=== PATIENT | female | born 1935 ===

== ENCOUNTER 2017-01-12 16:54 | Emergency (ER) | payer MEDICARE ==
[2017-01-12 16:57] VITALS: BMI 24.5
--- NOTE | 2017-01-12 17:26 | C.PDOC ---
History Of Present Illness <Steff Davies - Last Filed: 01/12/17 19:03> <Toña Pearson - Last Filed: 01/20/17 08:19> 81 y/o female presents to the ED with complaints of hypoglycemic episode [employer]. Family states patient syncopized, fingerstick 34. Patient s/p sugar PO. Pt states is now feeling better. Family states patient has not been eating well but still receiving normal dose of insulin. Denies fever, chest pain, SOB, weakness or any other complaints. Recent discharge s/p I&D of foot abscesses. S/P HYPOGLY EPISODE [employer]. FAMILY STATES PT SYNCOPIZED FS 34. S/P D50, SUGAR PO PS NOW FEELS BETTER. FAMILY STATES PT HAS NOT BEEN EATING WELL BUT STILL RECEIVING NORMAL DOSE OF INSULIN. NO FEVER. RECENT DC S/P I&D OF FOOT ABSCESSES EXAM NEG (Steff Davies) History Per: Patient History/Exam Limitations: no limitations Onset/Duration Of Symptoms: Mins Current Symptoms Are (Timing): Better Severity: Moderate Current Diabetic Medications: Insulin Treatment Prior To Provider Evaluation: D50W Given Response To Treatment: Good Response Recent travel outside of the [place]: No Additional History Per: Family <Steff Davies - Last Filed: 01/12/17 19:03> <Toña Pearson - Last Filed: 01/20/17 08:19> Time Seen by Provider: 01/12/17 17:13 Chief Complaint (Nursing): High Blood Sugar Past Medical History Reviewed: Historical Data, Nursing Documentation, Vital Signs - Medical History PMH: Anxiety, Arthritis, Depression, HTN, Hypercholesterolemia, Rheumatoid Arthritis Family History: States: Unknown Family Hx - Social History Hx Alcohol Use: No Hx Substance Use: No - Immunization History Hx Tetanus Toxoid Vaccination: No Hx Influenza Vaccination: Yes Hx Pneumococcal Vaccination: No <Steff Davies - Last Filed: 01/12/17 19:03> Review Of Systems Except As Marked, All Systems Reviewed And Found Negative. Constitutional: Negative for: Fever, Chills Cardiovascular: Negative for: Chest Pain Respiratory: Negative for: Shortness of Breath Gastrointestinal: Negative for: Vomiting Neurological: Positive for: Other (syncopal episode). Negative for: Weakness <Steff Davies - Last Filed: 01/12/17 19:03> Physical Exam - Physical Exam Appears: Non-toxic, No Acute Distress Skin: Warm, Dry, No Rash Head: Atraumatic, Normacephalic Oral Mucosa: Moist Neck: Normal, Normal ROM, Supple Chest: Symmetrical Cardiovascular: Rhythm Regular, No Murmur Respiratory: Normal Breath Sounds, No Rales, No Rhonchi, No Wheezing Gastrointestinal/Abdominal: Normal Exam, Soft, No Tenderness Extremity: Normal ROM Extremity: Bilateral: Atraumatic Neurological/Psych: Oriented x3, Normal Speech, Normal Cognition, Normal Motor, Normal Sensation <Steff Davies - Last Filed: 01/12/17 19:03> ED Course And Treatment O2 Sat by Pulse Oximetry: 96 (room air) Pulse Ox Interpretation: Normal <Steff Davies - Last Filed: 01/12/17 19:03> Progress - Data Reviewed Data Reviewed: Lab, Old records <Steff Davies - Last Filed: 01/12/17 19:03> <Toña Pearson - Last Filed: 01/20/17 08:19> - Re-Evaluation Re-evaluation Note: 01/12/17 17:43 TOLERATING PO. WILL REPEAT 1830. FAMILY DOESNT WANT READMIT D/W BASKET PERSON: PT RECEIVES LEVIMIR 22 U BID PLUS SLIDING SCALE HUMALOG (Steff Davies) Disposition <Steff Davies - Last Filed: 01/12/17 19:03> Counseled Patient/Family Regarding: Studies Performed, Diagnosis, Need For Followup - Disposition Disposition Time: 22:23 <Toña Pearson - Last Filed: 01/20/17 08:19> - Disposition Referrals: [facility] Trisha Osborne, [Non-Staff] - Disposition: HOME/ ROUTINE Condition: STABLE Additional Instructions: Thank you for letting us take care of you today. You were treated for low blood sugar. The emergency medical care you received today was directed at your acute symptoms. If you were prescribed any medication, please fill it and take as directed. It may take several days for your symptoms to resolve. Return to the Emergency Department if your symptoms worsen, do not improve, or if you have any other problems. Please contact your doctor or call one of the physicians/clinics you have been referred to that are listed on the Patient Visit Information form that is included in your discharge packet. Bring any paperwork you were given at discharge with you along with any medications you are taking to your follow up visit. Our treatment cannot replace ongoing medical care by a primary care provider (PCP) outside of the emergency department. Thank you for allowing the [facility] team to be part of your care today. You should follow up with your doctor in 1-2 days. Consider using only an insulin sliding scale until blood sugar and appetite normalizes. Instructions: Diabetic Hypoglycemia (ED) - Clinical Impression Clinical Impression: Hypoglycemia - Scribe Statement The provider has reviewed the documentation as recorded by the Scribe <Steff Davies - Last Filed: 01/12/17 19:03> <Toña Pearson - Last Filed: 01/20/17 08:19> - Scribe Statement Wilder Bolton (Steff Davies) Provider Attestation: All medical record entries made by the Scribe were at my direction and personally dictated by me. I have reviewed the chart and agree that the record accurately reflects my personal performance of the history, physical exam, medical decision making, and the department course for this patient. I have also personally directed, reviewed, and agree with the discharge instructions and disposition. (Steff Davies) Physician Patient Turnover Patient Signed Over To: Andrey Duncan DO Handoff Comments: fu repeat fs, dispo <Steff Davies - Last Filed: 01/12/17 19:03> Addendum <Steff Davies - Last Filed: 01/12/17 19:03> <Toña Pearson - Last Filed: 01/20/17 08:19> Addendum: 01/12/17 22:23 Patient's final accucheck >100, will be discharged at this time. She is well appearing, with normal vitals, ambulating normally in the ED. Patient instructed to follow up with PMD/clinic in 1-2 days, and understands she should return to Ed if symptoms worsen/return. (Toña Pearson)
[2017-01-12] MEDS ORDERED: Dextrose 50% SYRINGE Inj (50 ml) IV STA (19:05)
[2017-01-12] MEDS ORDERED: Dextrose 50% SYRINGE Inj (50 ml) ONE (19:07)
[2017-01-12 20:14] VITALS: O2SAT 95
[2017-01-12 22:59] VITALS: BP 136/67; PULSE 69; RESP 18; TEMP 98.8
== END 2017-01-12 23:15 | disposition home or self-care (01) ==
LOC: C.ER 16:54
DX: E11.649 Type 2 diabetes mellitus with hypoglycemia without coma (principal); I10 Essential (primary) hypertension; E78.00 Pure hypercholesterolemia, unspecified; M06.9 Rheumatoid arthritis, unspecified